=== PATIENT | female | born 1975 | race Caucasian/White ===

== ENCOUNTER → 2019-12-06 | Outpatient (CLI) | payer BC ==
[~2019-12-06] MED LIST: CATHETER FLUSH 10 ML SYR IV PRN
--- NOTE | 2019-12-06 14:33 | Diagnostic Imaging Report ---
INDICATION: Right upper quadrant pain. TECHNIQUE: Patient was administered 5.4 mCi technetium 99m Choletec intravenously and imaging over the abdomen was performed. At 45 minutes, patient ingested 8 ounces of Ensure and a gallbladder ejection fraction was calculated. Patient denied discomfort during the study. FINDINGS: There is homogeneous uptake of activity by the liver with prompt excretion of activity into the common duct and gallbladder. Normal passage of activity into the small bowel is noted. Gallbladder ejection fraction is lower limits of normal at 37%. Normal values are 35% or greater. IMPRESSION: 1. No evidence of cystic duct or common bile duct obstruction. 2. Lower limits of normal gallbladder ejection fraction of 37%. Dictated by: Dictated on workstation # [id number]
== END ==
LOC: CARD 11:56
PROVIDERS: ATTEND Surgery
DX: R10.11 Right upper quadrant pain (principal); R11.2 Nausea with vomiting, unspecified
CPT/HCPCS: 78227; A9537